=== PATIENT | female | born 2000 | race Hispanic/Latino ===

== ENCOUNTER 2019-10-18 14:36 | Outpatient (CLI) | payer OTHER ==
--- NOTE | 2019-10-18 15:02 | RAD ---
RIGHT HAND THREE VIEWS: 10/18/19 HISTORY: Injury, right hand pain. FINDINGS/IMPRESSION: No acute fracture or dislocation identified. POS: [facility]
--- NOTE | 2019-10-18 15:03 | RAD ---
FACIAL BONES THREE VIEWS: 10/18/19 HISTORY: Injury, contusion of the face, facial pain. FINDINGS/IMPRESSION: No definite facial bone fracture is seen. If there is high clinical suspicion for fractures, further evaluations with CT scan should be perform ed. POS: [facility]
== END 2019-10-18 14:37 | disposition home or self-care (01) ==
LOC: BICRAD 14:36
PROVIDERS: ATTEND Family Medicine
DX: S69.91XA Unspecified injury of right wrist, hand and finger(s), initial encounter (principal); S00.83XA Contusion of other part of head, initial encounter
CPT/HCPCS: 70150